=== PATIENT | male | born 1960 | race Caucasian/White ===

== ENCOUNTER → 2024-11-11 10:09 | Outpatient (CLI) | payer OTHER, SELFPAY ==
[2017-08-28 14:17] VITALS: BMI 25.0
--- NOTE | 2024-11-11 10:10 | DI.CT.S_ITS ---
PROCEDURE: CT LUNG LOW DOSE SCREENING INDICATIONS: lung CA screen TECHNIQUE: Noncontrast 2.0-2.5 mm thick sections acquired from the pulmonary apices to the posterior costophrenic angles. 7 mm thick axial MIP, and 5 mm coronal and sagittal reformats were then acquired. For radiation dose reduction, the following was used: automated exposure control, adjustment of mA and/or kV according to patient size. COMPARISON: None. FINDINGS: Image quality: Diagnostic. Lower Neck: No enlarged lymph nodes. Thyroid: No thyroid nodules which require sonographic follow up, per consensus guidelines. Axillae: No enlarged lymph nodes. Chest Wall: Unremarkable. Bones: Unremarkable. Lungs and Pleura: No pneumothorax or pleural effusions. No consolidation or suspicious nodules. Heart: Heart size is normal. No pericardial effusion. Severe coronary artery calcifications. Thoracic Vessels: The aorta and pulmonary arteries demonstrate normal size. Mediastinum and Radha: No enlarged lymph nodes. Esophagus: No wall thickening. No hiatal hernia. Upper Abdomen: Visualized upper abdomen solid organs and bowel loops appear normal. IMPRESSION: No suspicious pulmonary nodules. LUNG-RADS 1; continued annual screening, if eligible. Clinically Significant Non-pulmonary Findings: Severe coronary artery calcifications. Approved by: Divina Ballesteros M.D.,Ph.D. on 11/11/2024 at 13:07
== END ==
LOC: CT 10:10
PROVIDERS: Family Provider Family Medicine; PCP Family Medicine; Referring Provider Family Medicine; Visit Provider Family Medicine
DX: Z12.2 Encounter for screening for malignant neoplasm of respiratory organs (principal); Z87.891 Personal history of nicotine dependence; I25.10 Atherosclerotic heart disease of native coronary artery without angina pectoris
CPT/HCPCS: 71271

== ENCOUNTER → 2025-03-22 07:01 | Outpatient (CLI) | payer OTHER, SELFPAY ==
[2017-08-28 14:17] VITALS: BMI 25.0
--- NOTE | 2025-03-22 | DI.US.S_ITS ---
PROCEDURE: US CAROTID DOPPLER BI INDICATIONS: bilateral carotid bruits TECHNIQUE: Color and pulse Doppler interrogation was performed of both carotid systems, with image documentation and velocity measurements. COMPARISON: None. FINDINGS: Stenosis calculations are based on SRU (Society of Radiologists in Ultras[employer]) criteria. Right side: Common carotid artery peak systolic velocity: 77 cm/sec. Internal carotid artery peak systolic velocity: 84 cm/sec. Internal carotid artery end diastolic velocity: 31 cm/sec. External carotid artery peak systolic velocity: 137 cm/sec. ICA/CCA peak systolic ratio: 1.1 . Gutierrez scale imaging description: Atherosclerotic plaque Percent internal carotid artery stenosis: Less than 50 . Vertebral artery: Flow direction is antegrade. Left side: Common carotid artery peak systolic velocity: 76 cm/sec. Internal carotid artery peak systolic velocity: 89 cm/sec. Internal carotid artery end diastolic velocity: 32 cm/sec. External carotid artery peak systolic velocity: 93 cm/sec. ICA/CCA peak systolic ratio: 1.2 . Gutierrez scale imaging description: Atherosclerotic plaque Percent internal carotid artery stenosis: Less than 50 . Vertebral artery: Flow direction is antegrade. IMPRESSION: 1. In the right carotid artery, there is less than 50% stenosis based on peak systolic velocity criteria. 2. In the left carotid artery, there is less than 50% stenosis based on peak systolic velocity criteria. 3. Antegrade vertebral arteries. Approved by: Ashutosh Gayle M.D. on 03/22/2025 at 17:31
== END ==
LOC: US 07:02
PROVIDERS: Family Provider Family Medicine; Visit Provider Internal Medicine
DX: R09.89 Other specified symptoms and signs involving the circulatory and respiratory systems (principal); I65.23 Occlusion and stenosis of bilateral carotid arteries
CPT/HCPCS: 93880

== ENCOUNTER → 2025-04-27 09:05 | Outpatient (CLI) | payer OTHER, SELFPAY ==
[2017-08-28 14:17] VITALS: BMI 25.0
--- NOTE | 2025-04-27 09:06 | DI.ECHO.S_ITS ---
[place] [facility] : : [id number] : : [place] : : [id number] : : Phone: [phone] Echocardiogram Report + + :Name: CHANEL GILLETTE Study Date: 04/27/2025 Height: 73 in : :[facility] ReadingLocation: Weight: 195 lb : : Gender: Male BSA: 2.1 m2 : :: 1960 Age: 64 yrs BP: 159/99 mmHg: :Reason For Study: NON-RHEUMATIC AORTIC VALVE SCLEROSIS : :Ordering Physician: NELA AVILA Performed By: Edvin Mauricio : :Referring: NELA AVILA : + + Interpretation Summary - Normal LV contractility with EF > 65% and no WMA. No LVH. Indeterminate diastolic function. - Normal RV contractility. - Mild LAE. - Moderate to severe aortic stenosis with peak velocity 3.1 m/sec and dimensionless index 0.30. - No obvious intracardiac shunts. - No obvious intracardiac masses/thrombi. - No hemodynamically significant pericardial effusion. - Normal right sided filling pressures. Conclusion: Normal biventricular systolic function with moderate to severe aortic valvular stenosis. Procedure: A two-dimensional transthoracic echocardiogram with color flow and Doppler was performed. The study quality was technically good. There is no prior echocardiogram noted for this patient. The patient was in normal sinus rhythm during the exam. Left Ventricle: The left ventricle is mildly dilated. There is normal left ventricular wall thickness. There is no ventricular septal defect visualized. The ejection fraction is estimated to be 55-60%. There are no focal wall motion abnormalities. Diastolic parameters suggest probable normal left ventricular diastolic function and normal filling pressures. Right Ventricle: The right ventricle is mildly dilated. The right ventricular systolic function is normal. Atria: The left atrium is mildly dilated. Right atrial size is normal. There is no Doppler evidence for an interatrial shunt. Mitral Valve: The mitral valve leaflets appear mildly thickened. The mitral valve leaflets are mildly calcified. There is trace mitral regurgitation. Aortic Valve: The aortic valve is trileaflet. There is moderate aortic valve sclerosis. There is moderately reduced leaflet mobility. There is moderate to severe aortic stenosis. The calculated aortic valve area is 0.9 cm2. The peak aortic velocity is 3.07 m/sec. The aortic valve mean gradient is 20.5 mmHg. No aortic regurgitation is present. Tricuspid Valve: The tricuspid valve leaflets are thin and pliable. No tricuspid regurgitation. Pulmonic Valve: The pulmonic valve is not well visualized. There is no pulmonic valvular regurgitation. Great Vessels: The aortic root is mildly dilated. The dimensions of the ascending aorta are normal. The pulmonary artery is not well visualized, but is probably normal size. The IVC is dilated (diameter is greater than 2.1 cm) yet it collapses greater than 50% with a sniff. This suggests a right atrial pressure of 8 mm Hg. Pericardium/ Pleura There is no pericardial effusion. There is no pleural effusion. MMode/2D Measurements & Calculations LVIDd: 6.3 cm LVOT diam: 2.0 cm LVIDs: 3.9 cm Ao root diam: 3.8 cm FS: 37.5 % asc Aorta Diam: 3.4 cm EPSS: 0.71 cm IVSd: 0.96 cm LVPWd: 0.88 cm LV candelaria. diameter/BSA (cm/m^2): 3.0 LV sys. diameter/BSA (cm/m^2): 1.9 LA A2 area: 21.9 cm2 RA long axis: 4.6 cm LA A4 area: 23.4 cm2 RA area: 17.0 cm2 LA length (vol): 5.9 cm RA vol: 53.8 ml LA vol: 74.4 ml RA : 25.3 ml/m2 LA vol index: 34.9 ml/m2 IVC diam: 2.2 cm RVD1 (basal): 4.2 cm RVD2 (mid): 2.7 cm TAPSE: 2.8 cm Doppler Measurements & Calculations Ao V2 max: 307.0 cm/sec LVOT Max Luis Carlos: 89.4 cm/sec Ao V2 mean: 213.8 cm/sec LV V1 max P.2 mmHg Ao max P.8 mmHg LV V1 VTI: 22.8 cm Ao mean P.5 mmHg SABRINA(I,D): 0.97 cm2 Ao V2 VTI: 75.0 cm SABRINA(V,D): 0.93 cm2 sev ratio: 0.30 SABRINA indexed to BSA (cm^2/m^2): 0.46 MV E max luis carlos: 68.2 cm/sec PA V2 max: 126.1 cm/sec MV A max luis carlos: 46.1 cm/sec PA V2 mean: 88.4 cm/sec MV E/A: 1.5 PA mean P.4 mmHg Med Peak E' Luis Carlos: 5.9 cm/sec PA pr(Accel): 48.2 mmHg E/E' med: 11.6 Lat Peak E' Luis Carlos: 10.2 cm/sec E/E' lat: 6.7 E/e' average: 9.1 MV dec time: 0.24 sec [facility] 73.0 ml Reading Physician:ELOISA
== END ==
PROVIDERS: Family Provider Family Medicine; Referring Provider Internal Medicine; Visit Provider Internal Medicine
DX: I35.8 Other nonrheumatic aortic valve disorders (principal); I35.0 Nonrheumatic aortic (valve) stenosis; I77.810 Thoracic aortic ectasia
CPT/HCPCS: 93306